=== PATIENT | male | born 1970 | race Caucasian/White ===

== ENCOUNTER 2019-05-11 07:19 | Emergency (ER) | payer MEDICAID, SELFPAY ==
[2019-05-11 07:20] VITALS: BP 137/97; PULSE 105; RESP 30; TEMP 36.9; O2SAT 97; BMI 29.2
--- NOTE | 2019-05-11 07:25 | NURSING ---
NO OLD EKGS
--- NOTE | 2019-05-11 07:26 | EKG12_ITS ---
Test Reason : CP Blood Pressure : / mmHG Vent. Rate : 105 BPM Atrial Rate : 105 BPM P-R Int : 144 ms QRS Dur : 082 ms QT Int : 302 ms P-R-T Axes : 018 046 015 degrees QTc Int : 399 ms Sinus tachycardia Possible Inferior infarct , age undetermined Possible Anterior infarct , age undetermined Abnormal ECG Confirmed by BARBARA GUZMAN ([id number]), material expeditor DANNIELLE COHEN ([id number]) on 05/12/2019 1:43:59 PM Referred By: MICHAEL Confirmed By:BARBARA GUZMAN
[2019-05-11 07:34] LABS: Absolute Lymphocyte Count 1.44 X10^3/uL (0.83-4.51); Basophil# 0.04 X10^3/uL; Basophil% 0.5 % (0-1); Eosinophils% 1.2 % (0-5); Hematocrit 41.4 % (40-54); Hemoglobin 12.7 g/dL (13.0-16.5); Lymphocyte # 1.44 X10^3/ul (4.0); Lymphocyte % 16.6 % (19-41); Mean Corp Hgb Conc 30.7 g/dL (32-36); Mean Corpuscular Volume 88.1 fL (80-94); Mean Platelet Vol. 8.5 fl (6.2-12.0); Monocyte# 1.07 X10^3/uL; Monocyte% 12.3 % (0-10); NRBC Flagged by Analyzer 0 % (0-5); Neutrophil # 5.95 X10^3/uL (2.7-7.7); Neutrophil % 68.4 % (47-70); Platelet Count 297 K/mm3 (150-450); RBC Distribution Width CV 15.3 % (11.6-14.6); RBC Distribution Width SD 49.4 fl (35.1-43.9); White Blood Count 8.7 K/mm3 (4.4-11.0)
--- NOTE | 2019-05-11 07:35 | RAD_ITS ---
HISTORY: CHEST PAIN RIGHT ANTERIOR TODAY ADDITIONAL HISTORY: None provided. COMPARISON: None TECHNIQUE: Frontal chest radiograph. Number of images including paperwork: 1 FINDINGS: LUNGS AND PLEURA: Low lung volumes. No consolidation, mass or pleural effusion. Mild basilar linear opacities. CARDIAC SILHOUETTE: Upper normal size, magnified in this projection. MEDIASTINUM AND MICHAELA: Unremarkable. UPPER ABDOMEN: Unremarkable. SKELETON AND SOFT TISSUES: No acute findings. Degenerative changes. OTHER DEVICES AND HARDWARE: None. RAD/Chest 1 View (Portable) IMPRESSION: Low lung volumes with mild basilar atelectasis. No acute infiltrate. at 0758 Reported and signed by: Ellen Monroe MD Electronically Signed: Ellen Monroe MD at 7:58 EDT Tel , Service support ,
[2019-05-11] MEDS: Aspirin 81 MG TAB.CHEW 324 MG PO (07:49)
[2019-05-11 07:55] LABS: Anion Gap 6 (5-15); BUN 20 mg/dL (7-18); BUN/Creat Ratio 18.5 RATIO (10-20); Calcium,Total 8.9 mg/dL (8.5-10.1); Chloride 108 mmol/L (98-107); Creatinine, Serum 1.08 mg/dL (0.70-1.30); EST Glomerular Filtration Rate 77 mL/min (>60); Est Glom Filt Rate - Afr Amer 93 mL/min (>60); Estimated Creatinine Clearance 80.05 ml/min; Glucose 130 mg/dL (74-106); Potassium 4.1 mmol/L (3.5-5.1); Sodium Level 141 mmol/L (136-145)
[2019-05-11 08:13] LABS: Lipase 149 U/L (73-393)
[2019-05-11 08:15] LABS: AST(SGOT) 13 U/L (15-37); Alanine Aminotransfer ALT/SGPT 34 U/L (16-61); Albumin, Serum 3.3 g/dL (3.2-5.0); Alkaline Phosphatase 82 U/L (45-117); Bilirubin, Direct 0.11 mg/dL (0.00-0.30); Globulin 4.4 g/dL (2.2-4.2); Protein, Total 7.7 g/dL (6.4-8.2)
--- NOTE | 2019-05-11 08:16 | CT_ITS ---
STUDY: CTA CHEST REASON FOR EXAM: Male, 48 years old. Right lower chest pain. RADIATION DOSAGE (If Supplied By Facility): CTDIvol = ( 12.02 ) mGy, DLP = ( 382.77 ) mGycm TECHNIQUE: The examination was performed with the intravenous administration of 100 IV Isovue 370. Post-processing of the angiographic images was performed, with multiplanar reformation and 3D reconstruction. Individualized dose optimization techniques were used for this CT. COMPARISON: Comparison is made with prior chest regressed done earlier today. FINDINGS: Normal enhancement of the main pulmonary artery and right and left pulmonary arteries. Normal enhancement of the bilateral peripheral pulmonary arteries. There is no demonstrated pulmonary embolism. Normal thoracic aorta and visualized great vessels. There is no demonstrated aortic dissection. Normal heart and pericardium. Normal mediastinum. Normal hilar regions. Normal visualized trachea and bronchi. The lungs are well expanded. Minimal degree of bibasilar atelectasis slightly more prominent on the right side. Normal pleura. Normal chest wall structures. Normal osseous structures. Small hiatal hernia. Findings suggestive of a 1.9 cm x 0.6 cm cyst in the posterior aspect of the caudate lobe of the liver. CT/CTA Chest W/WO Contrast IMPRESSION: Mild degree of bibasilar atelectasis slightly more prominent on the right side. No evidence of pulmonary embolus. Electronically Signed: Manny Watkins, at 8:49 EDT , Service support ,
[2019-05-11] MEDS: morphine 8 MG/ML Syringe 6 MG IV ×2 (08:18→09:42)
[2019-05-11] MEDS: Ondansetron 4 MG/2 ML Vial IV (08:18)
--- NOTE | 2019-05-11 09:24 | ED.VISSUMM ---
- ER Visit Summary Date of Service: 05/11/19 Chief Complaint: Right sided chest pain in the right rib cage History of Present Illness: The patient is a 48 M past medical history of ulcerative colitis. He had a colonoscopy done about a week ago. Patient states around 3:00 this morning when he got up to use the restroom at home he had right-sided stabbing chest pain along his right lower lateral rib cage. He denies any fall injury or trauma. He does not have shortness of breath he said it hurts more to take a deep breath. He is never had anything like this before. He is never had a DVT or PE. He denies any fall trauma or injury. He is never had a pneumothorax. He denies any leg swelling or pain. He denies any hemoptysis. He has no known cardiac history. He has had no recent exertional shortness of breath or exertional chest pain. It is all right lower rib cage. No recent travel or hospitalization. His colonoscopy was an outpatient procedure. Physical Examination: White male plan right rib cage pain. Vital signs are stable afebrile. Pulse ox 97% on room air no signs of hypoxia. HEENT exam unremarkable. Neck nontender. Lungs he is splinting but his lungs are clear to diminished on the right side as he does not take a deep breath because it hurts. Heart regular rhythm rate about 105 no murmur. Chest wall is mild reproducible right rib cage pain. There is no ecchymosis or bruising. No subcu air crepitance. No bony deformity. Abdomen is soft there is minimal right upper quadrant tenderness. No rebound or guarding. No Sorensen sign. Right lower quadrant unremarkable. Back is nontender. Spine is nontender. Patient is moving all 4 extremities. Is equal symmetrical radial pulses. Calves are nontender without edema or cords. Normal motor strength and sensation. Neurologic exam is normal. Test Results: KG shows a sinus tachycardia rate of 105 no acute signs of DE or ischemia. CBC was normal with a white count 8. Hemoglobin 12. Chemistries normal. Normal creatinine gap. Liver enzymes and lipase were normal. Troponin is normal. D-dimer was slightly elevated 0.5. Chest x-ray showed no acute abnormality read by myself and the radiologist. CTA of the chest done due to right-sided chest pain and a slightly elevated d-dimer and it was unremarkable. No PE or dissection. Read by the radiologist reviewed by me. No pneumothorax. No fluid or infiltrate. Emergency Department Course and Treatment: Repeat exam patient is feeling better at 0 9:25 AM. Discussed with both the family and the patient. He will be given additional Toradol and morphine here for pain. Discharged home with [place]. He did state that he had a respiratory infection about 1 to 2 weeks ago. Treatment Plan: Continue his current course of prednisone. [place] for pain. Follow-up with his doctor if not improving or return if worse. Disposition: Discharge Impression: Acute right-sided chest pain secondary to pleurisy This note was generated with [employer] dictation software. It may contain incorrect words, spelling, and punctuation that were not noted in review of the chart prior to signing ED Disposition - Plan for ED Patient: Referrals: Care Physician,No Primary [Primary Care Provider] -
--- NOTE | 2019-05-11 09:29 | DCINST.ED_ITS ---
ED Disposition - Plan for ED Patient: Disposition: Home or Assisted Living Instructions: Pleurisy Prescriptions: Hydrocodone/Acetaminophen [[place] 10-325 Tablet] 1 ea PO Q4H PRN PRN #20 tab PRN Reason: Pain Prescription Printed Referrals: Care Physician,No Primary [Primary Care Provider] - 3-5 Days if not improving Additional Instructions: Continue your current prescription of prednisone. [place] for pain up to 2 pills every 4 hours. As needed. Follow-up if not improving or return if worse.
[2019-05-11 09:38] VITALS: BP 115/76; PULSE 96; O2SAT 96
[2019-05-11] MEDS: Ketorolac 30 MG/ML Syringe IV (09:43)
== END 2019-05-11 09:50 | disposition home or self-care (01) ==
PROVIDERS: Emergency Provider Emergency Medicine
DX: R09.1 Pleurisy (principal); K51.90 Ulcerative colitis, unspecified, without complications; R74.8 Abnormal levels of other serum enzymes; R00.0 Tachycardia, unspecified; Z79.52 Long term (current) use of systemic steroids; Z79.899 Other long term (current) drug therapy; Z87.891 Personal history of nicotine dependence
CPT/HCPCS: 71045; 71275; 80048; 80076; 83690; 84484; 85025; 85379; 93005; 96361; 96374; 96375; 96376; 99285; J7030; Q9967; A4216; J2405